=== PATIENT | male | born 1980 ===

== ENCOUNTER 2021-09-27 08:43 | Outpatient (REF) | payer BC, SELFPAY ==
--- NOTE | 2021-10-09 15:58 | MHC.AU.ANO ---
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 Jonathon reports he really started noticing the tinnitus in June 2021; however, he feels the ringing noise may have been there before and he just didn't realize it. The tinnitus fluctuates and tends to increase when in a quiet environment, when he clenches his teeth, or his ear feels blocked up . Jonathon also notes he was diagnosed with COVID 19 the first week of May 2021. Then later that month, he sustained an Achilles injury which required surgery. The tinnitus was then noticed in June 2021. Does patient feel they have a hearing loss?: No Has hearing been tested previously?: No Hearing Handicap Inventory: HHIE SCORE: 0 Based on HHIE score, patient has: No perceived hearing handicap Ear History: Bothersome Tinnitus/Ringing/Noises in Ears: Both Ears Ear used on the phone: Right Ear Blocked/Full Sensation in Ear(s): Both Ears History of occupational noise exposure?: No History: No Medical History: Medical History: Headache with intermittent unsteadiness when standing, first started in 2018. High Blood Pressure Medication List: Amlodipine and Benazepril Otoscopy: Right Ear: Unremarkable Left Ear: Unremarkable Tympanometry: Tympanometry performed due to: To assess integrity of the middle ear system Right Ear: Normal Middle Ear System (Type A) Left Ear: Normal Middle Ear System (Type A) Otoacoustic Emissions Frequency Range Used: 1.6-8 kHz Right Ear Results: Present 4481-0793 Hz. Absent 8000 Hz Analysis: Present emissions suggest normal cochlear function Rules out peripheral hearing loss greater than a mild degree Reduced/Absent emissions suggest cochlear dysfunction Left Ear Results: Present 3783-1509 Hz. Absent 6000 & 8000 Hz Analysis: Present emissions suggest normal cochlear function Rules out peripheral hearing loss greater than a mild degree Reduced/Absent emissions suggest cochlear dysfunction Hearing Evaluation: Transducer(s) Used: Insert Earphones Method: Conventional Audiometry Stimuli Used: Pure Tones Right Ear: Description of Hearing: Normal hearing thresholds of 0-15 dB HL, 250-8000 Hz. Left Ear: Description of Hearing: Normal hearing thresholds of 5-15 dB HL, 250-8000 Hz. Speech Recognition Threshold (SRT): Method Used: Monitored Live Voice Stimuli Used: Spondee Words Right Ear: 0 dB HL Left Ear: 0 dB HL Word Discrimination: Method: Recorded Lists Word Lists Used: NU-6 Right Ear: 100% at 50 dB HL Left Ear: 100% at 50 dB HL Interpretation of Results: The various theories of tinnitus were discussed today. The most common reasons for tinnitus include inner ear dysfunction, noise exposure, stress, fatigue, chronic pain, and congestion/inflammation of the ears, nose, throat, jaw areas. The timing of the perception of tinnitus coincides shortly after having COVID 19, then experiencing significant chronic pain from the Achilles injury/surgery. An accumulative effect of tinnitus triggering factors is likely in this case. Management strategies were discussed today Recommendations: No further audiological action is indicated at this time. If a change in hearing, tinnitus, or ear symptoms occur, an audiologic re-evaluation should be scheduled and medical consultation with an Line Department Supervisor should be considered. Diagnosis: Primary Diagnosis: Z01.11 Encounter for exam of ears/hearing with abnormal findings Secondary Diagnosis: H93.13 Tinnitus, Bilateral Services Performed: Pure Tone- Air (CPT 48229) Speech Audiometry Threshold, with Speech Recognition (CPT 17279) Diagnostic Otoacoustic Emissions (CPT 65485, 26+TC) Tympanometry (CPT 39616) Signature: Provider: Juan Maradiaga, [id number]
== END 2021-09-27 08:44 | disposition home or self-care (01) ==
LOC: HO.SH 08:43
PROVIDERS: PCP Internal Medicine; Visit Provider Internal Medicine
DX: Z01.118 Encounter for examination of ears and hearing with other abnormal findings (principal); H93.13 Tinnitus, bilateral
CPT/HCPCS: 92552; 92556; 92567; 92588